=== PATIENT | female | born 1950 | race Caucasian/White ===

== ENCOUNTER 2017-11-08 02:04 | Observation (INO) | payer OTHER ==
--- NOTE | 2017-11-08 02:16 | EDPHY ---
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 She did not get the prescription filled and she did not start taking the medication. She reports to me that her blood pressure usually runs in the 140s over 80s or 150s over 90s she decided to go to the multiple punch press operator at the encouragement of her for elevated blood pressure. She has not had any chest pain or shortness of breath. Denies headache. She got home from the [employer] [place] this evening and realized that she had some rather strong pulsations of her heart but no chest pain or shortness of breath. No headache. No focal weakness numbness or tingling. She decided to take her blood pressure was getting elevated readings in the 160. She decided come the emergency room with encouragement of her after they had a reading of 214 /1 50s. This scared her and decided come the emergency room. Asymptomatic. Upon arrival to the emergency room out triage blood pressure is noted to be 218/ 140. No chest pain no shortness of breath no headache no numbness or tingling no focal weakness. She otherwise states she feels fine. Past Medical History: Denies any medical history Past Surgical History: Denies surgical history Social History: Denies daily use of drugs alcohol tobacco. Resides in [facility]. Family History: Cardiovascular disease in her mother and father. ROS REVIEW OF SYSTEMS: A comprehensive 10 point review of systems is otherwise negative aside from elements mentioned in the history of present illness. Exam Constitutional appears well nontoxic vital signs noted at triage hypertensive. triage nursing summary reviewed, vital signs reviewed, awake/alert. Vital signs noted. 218/140. Eyes normal conjunctivae and sclera, EOMI, PERRLA. HENT normal inspection, atraumatic, moist mucus membranes, no epistaxis, neck supple/ no meningismus, no raccoon eyes. Respiratory clear to auscultation bilaterally, normal breath sounds, no respiratory distress, no wheezing. Cardiovascular rate normal, regular rhythm, no murmur, no edema, distal pulses normal. Gastrointestinal soft, non-tender, no rebound, no guarding, normal bowel sounds, no distension, no pulsatile mass. Genitourinary no CVA tenderness. Musculoskeletal no midline vertebral tenderness, full range of motion, no calf swelling, no tenderness of extremities, no meningismus, good pulses, neurovascularly intact. Skin pink, warm, & dry, no rash, skin atraumatic. Neurologic awake, alert and oriented x 3, AAOx3, moves all 4 extremities equally, motor intact, sensory intact, CN II-XII intact, normal cerebellar, normal vision, normal speech. Psychiatric normal mood/affect. Heme/Lymph/Immune no lymphadenopathy. 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 Re-evaluation: EKG interpretation by me on record in [facility] system. Impression time of EKG 2:30 a.m., sinus rhythm is 76 right bundle-branch block and left anterior fascicular block. LVH present. No ST elevation no ST depression, noted T-wave abnormality V1 V2. Subtle V3. No old EKG to compare to. 0444: Patient is resting comfortably no complaints. Patient blood pressure is steadily improving. Still somewhat high but not nearly as high when she arrived. No chest pain no shortness of breath. Troponin is noted be negative. Creatinine is normal. Will re-evaluate. Additionally I have ordered her 5 mg p.o. Norvasc here in the emergency room. Will re-evaluate. 0652: Patient's blood pressure has went up to 178/100. The lowest I saw was in the 160 systolic. She is resting comfortably. However lengthy discussion with her and her at bedside they would prefer to be admitted today for observation and for better hypertension control. This time she has no chest pain or shortness of breath. She does feel anxious I did give her 5 mg of norvasc here in the emergency room which slightly improved blood pressure and now has increasing again. I have ordered the patient 10 mg IV hydralazine. Plan will be for admission for hypertension observation today. 0711: Spoke with the hospitalist Dr. Hunter, she agrees to admit the patient for hypertensive urgency and further observation of the patient's hypertension. 10 mg IV hydralazine as been ordered in the emergency room. Blood pressure current 180s over 100. Heart rate 90. Patient without chest pain or shortness of breath. Resting comfortably. Agrees for hospital admission for further blood pressure control. Source: Patient - Personal History Current Tetanus Diphtheria and Acellular Pertussis (TDAP): Unsure - Medical/Surgical History Hx Asthma: No Hx Chronic Respiratory Disease: No Hx Diabetes: No Hx Cardiac Disease: No Hx Renal Disease: No Hx Cirrhosis: No Hx Alcoholism: No Hx HIV/AIDS: No Hx Splenectomy or Spleen Trauma: No Other PMH: APPY, TONSIL, BACK SX - Social History Smoking Status: Never smoked Constitutional: Initial Vital Signs Temperature (C) 37.2 C 11/08/17 02:09 Heart Rate 86 11/08/17 02:09 Respiratory Rate 18 11/08/17 02:09 Blood Pressure 218/140 H 11/08/17 02:09 O2 Sat (%) 94 11/08/17 02:09 O2 Delivery Mode Room Air Allergies/Adverse Reactions: No Known Allergies Allergy (Unverified 11/08/17 02:08) Home Medications: Medication Instructions Recorded Ascorbic Acid [Vitamin C 500 mg 1,000 mg PO QID 11/08/17 (*)] Aspirin [Aspirin 325 mg (*)] 325 - 650 mg PO DAILY PRN 11/08/17 Cholecalciferol Vit D3 [Vitamin D3 2,000 units PO DAILY 11/08/17 2000 units tab (OTC)] Herbals/Supplements -Info Only 1 ea PO DAILY 11/08/17 amLODIPine BESYLATE [Norvasc 5 mg 5 mg PO DAILY #30 tab 11/08/17 (*)] Medical Decision Making - Data Points Laboratory Results: Laboratory Results 11/08/17 02:44 11/08/17 02:44 Medications Given: Discontinued Medications Amlodipine Besylate (Norvasc) 5 mg PO EDNOW ONE Stop: 11/08/17 04:44 Last Admin: 11/08/17 04:53 Dose: 5 mg Ascorbic Acid (Vitamin C) 1,000 mg PO QID SHELLY Stop: 05/07/18 11:59 Last Admin: 11/08/17 12:15 Dose: Not Given Enoxaparin Sodium (Lovenox) 40 mg SC DAILY SHELLY Stop: 05/07/18 08:59 Last Admin: 11/08/17 10:10 Dose: 40 mg Hydralazine HCl (Apresoline) 10 mg IVP EDNOW ONE Stop: 11/08/17 06:53 Last Admin: 11/08/17 06:55 Dose: 10 mg Departure - Departure Disposition: [facility] Acute Clinical Impression: Hypertensive urgency Condition: Fair
--- NOTE | 2017-11-08 02:41 | CPEKG ---
Heart Rate: 76 RR Interval: 789 P-R Interval: 176 QRSD Interval: 138 QT Interval: 448 QTC Interval: 504 P [place]: 57 QRS [place]: -60 T Wave [place]: 8 EKG Severity - ABNORMAL ECG - EKG Impression: SINUS RHYTHM EKG Impression: PROBABLE LEFT ATRIAL ABNORMALITY EKG Impression: RBBB AND LAFB EKG Impression: LEFT VENTRICULAR HYPERTROPHY Electronically Signed By: Lars Cruz 08-Nov-2017 07:18:10
[2017-11-08 02:57] LABS: PLATELET COUNT 218 10^3/uL (150-400)
[2017-11-08 03:17] LABS: CREATINE KINASE 40 IU/L (0-156)
[2017-11-08] MEDS ORDERED: amLODIPine BESYLATE 5 MG TAB PO ONE (04:43)
[2017-11-08] MEDS ORDERED: hydrALAZINE 20 MG/ML VIAL IVP ONE (06:52)
[2017-11-08] MEDS ORDERED: ACETAMINOPHEN 325 MG TAB PO PRN (07:49)
[2017-11-08] MEDS ORDERED: ONDANSETRON 4 MG/2 ML VIAL IVP PRN (07:49)
[2017-11-08] MEDS ORDERED: hydrALAZINE 20 MG/ML VIAL IVP PRN (07:52)
[2017-11-08] MEDS ORDERED: ENOXAPARIN 40 MG/0.4 ML SYR SC SCH (09:00)
--- NOTE | 2017-11-08 10:50 | GHP ---
[f rep st] HISTORY AND PHYSICAL DATE OF ADMISSION: 11/08/2017 CHIEF COMPLAINT: Chest pounding. HISTORY OF PRESENT ILLNESS: A 67-year-old female with a recent diagnosis of hypertension, traveling from [place]. The patient was diagnosed and prescribed an antihypertensive the day before she travel ed. The patient did not fill this medication, and instead, came on her trip. During her trip, she h ad been in her normal state of health. She denies any chest pain, denies shortness of breath, denies dyspnea on exertion, denies vision changes, headaches, lightheadedness, dizziness, changes in her zoila wel habits, or urinary difficulties. Denies any lower extremity edema, arthralgias, or myalgias. [facility] patient describes the day prior to presentation having a sensation of pounding heartbeat. She chec ked her blood pressure and noted that the systolics were above the 150s. The morning of presentation , rechecked and noted that her blood pressures were in the 200s systolic. Therefore, presented to [facility] emergency department for evaluation. In the ED, the patient was treated with an IV push of hydrala zine 10, as well as Norvasc 5, had precipitous drop in her blood pressure from a systolic of 218 to a systolic of 100. The patient is being admitted for monitoring post treatment. PAST MEDICAL HISTORY: Hypertension. SOCIAL HISTORY: The patient is a vegetarian, quite healthy. Does not smoke. Does not drink. Smoke s marijuana occasionally. No illicit drugs. FAMILY HISTORY: Positive for hypertension, heart disease in her mother. REVIEW OF SYSTEMS: A 10-point review of systems is negative with the exception of reported in the HP I. PHYSICAL EXAMINATION: VITAL SIGNS: Blood pressure 119/74, heart rate 85, respiratory rate 12, satur ating 94% on room air, 36.8. GENERAL: This is a very healthy-appearing middle-aged female in no acu te distress. HEENT: Notable for moist mucous membranes. Eye exam is negative for any icterus. CAR DIAC: The patient is regular rate and rhythm. PULMONARY: She is clear to auscultation bilaterally. GASTROINTESTINAL: Positive bowel sounds. Abdomen is soft and nontender. MUSCULOSKELETAL: Negati ve for any lower extremity edema. SKIN: Negative for any rashes. NEUROLOGIC: She is alert and nayeli ented x3. PSYCHIATRIC: She is pleasant and cooperative on interview and examination. DATA: Creatinine 0.5, sodium 140. Liver function tests are normal. Troponin less than 0.012. Whit e count 13, hematocrit 37.6, platelet count of 218. EKG, which I personally reviewed and interpreted, shows sinus rhythm, leftward axis deviation, right bundle branch block with no acute ST-T changes. ASSESSMENT AND PLAN: This is a 67-year-old female presenting with accelerated hypertension. The pat ient was treated in the emergency department and has low-normal blood pressures. We will continue to monitor this afternoon. If her blood pressure is stabilized, we will discharge today on Norvasc 5-1 0 mg daily and have her follow in [place] with her outpatient provider. We will keep the patient on telemetry monitoring during her observation period as she is describing a persistent sensation of hea rt pounding. PROPHYLAXIS: SCDs and Lovenox if the patient does not ambulate. DIET: Cardiac. DISPOSITION: I expect in less than 2 midnights as I anticipate the patient's blood pressure will sta bilize and she will be safe for disposition. /[id number]/MODL
[2017-11-08] MEDS ORDERED: ASCORBIC ACID 500 MG TAB PO SCH (12:00)
[2017-11-08 13:04] VITALS: BP 140/82
[2017-11-09] MEDS ORDERED: CHOLECALCIFEROL VIT D3 2,000 UNITS TAB/CAP PO SCH (09:00)
--- NOTE | 2017-11-09 09:01 | GDS ---
[f rep st] DISCHARGE SUMMARY DISCHARGE DIAGNOSIS: Uncontrolled/accelerated hypertension. HISTORY OF PRESENT ILLNESS: A 67-year-old female visiting from [place], who presents with elevated b lood pressure. For details of patient's initial presentation, please see the history and physical da rikki 11/08/2017. CONSULTATIVE SERVICES: None. PROCEDURES: None. HOSPITAL COURSE: Accelerated hypertension. Patient presented with systolic blood pressures in the 2 00s, received a dose of oral Norvasc 5 mg and an IV push of hydralazine. Her blood pressures dropped into the 100s systolic and she was admitted to the PCU for observation. Over the course of her obse rvation period patient's blood pressures settled out into the 130s-140s. The patient is discharged w ith Norvasc 5 mg daily and instructions to follow with her primary care provider when she returns to [place] later this week. MEDICATIONS: At the time of disposition the patient was provided Norvasc 5 mg from the [facility] greens. PENDING STUDIES: At the time of this dictation are none. FOLLOWUP: Followup includes with her PCP in [place] upon returning home. I spent greater than 30 minutes in the planning and coordination of this discharge. /[id number]/MODL
== END 2017-11-08 16:09 | disposition home or self-care (01) ==
LOC: F2W 08:07
PROVIDERS: ADMIT Family Medicine; ATTEND Hospitalist
DX: I16.0 Hypertensive urgency (principal)
CPT/HCPCS: 93005; 96374; 99285; G0378; J0360; J1650